=== PATIENT | male | born 1975 | race Caucasian/White ===

== ENCOUNTER 2017-10-11 22:51 | Inpatient (IN) | payer OTHER ==
[~2017-10-11] VITALS: Ht 175.3 cm; Wt 97.5 kg
[2017-10-11] MEDS ORDERED: LORAZEPAM 2 MG/1 ML VIAL IM PRN (23:00)
[2017-10-11] MEDS ORDERED: LOPERAMIDE HCL 2 MG CAPSULE PO PRN ×2 (23:00)
[2017-10-11] MEDS ORDERED: MAG HYDROX/AL HYDROX/SIMETH 30 ML LIQUID UDC PO PRN (23:00)
[2017-10-11] MEDS ORDERED: THIAMINE HCL 200 MG/2 ML VIAL IM ONE (23:00)
[2017-10-11] MEDS ORDERED: DICYCLOMINE HCL 20 MG TABLET PO PRN (23:00)
[2017-10-11] MEDS ORDERED: ACETAMINOPHEN 325 MG TABLET PO PRN (23:00)
[2017-10-11] MEDS ORDERED: LORAZEPAM 1 MG TABLET PO PRN ×2 (23:00)
[2017-10-11] MEDS ORDERED: MIRALAX 17 GM POWD.PACK PO PRN (23:00)
[2017-10-11] MEDS ORDERED: IBUPROFEN 400 MG TABLET PO PRN (23:00)
--- NOTE | 2017-10-11 23:25 | NUR ---
PRE - ADMISSION NOTE: Patient is a 42 year old male AOX4, presented to [facility] to detoxify from ETOH/Alcohol. CIWA16. Patient appears anxious, nervous, tremors to touch with flushed face. Patient is cooperative, speech is clear and audible. Patient reports NKA. Patient's vital signs are as follows: BP 109/70, HR 83, T: 98.1, RA SPO2 94%, pain level "0/10". Patient denies any pain at this time. Patient instructed on unit protocol of vitals Q4H and COWS/CIWA assessments. Patient verbalized understanding and agreement. Patient also instructed on policy regarding destruction of any controlled substances/prescriptions brought to facility, and handling of all medications. Patient verbalized understanding and agreement. Will complete admission assessment when patient is brought up to unit.
[2017-10-11 23:45] VITALS: BP 109/70
--- NOTE | 2017-10-11 23:45 | NUR ---
ADMISSION NOTE New patient is a 42 year old male admitted to [facility] on 10/11/2017 @2345 for medically supervised withdrawal from Alcohol. Patient reports NKA. Patient is on Full Code, Regular diet, is on Fall and Seizures precautions. Past Medical History: Anxiety, Depression, Hepatitis C, Substance Use disorder, Chronic tobacco use. Patient denies Past Surgical History. PCP - patient can't recalled the name. Pre-assessment completed in intake. Patient unable provided UDS test at this time. A&Ox4, speech is clear. Height: 69 in, Weight: 215 lbs by standing scale. VS upon admission: BP 109/70, HR 83, T: 98.1, RA SPO2 94%, pain level "0/10". Patient denies any pain at this time. CIWA 16. The patient presented with anxiety, agitation, nervousness, tremors, diaphoresis, restless legs, and fatigue. Patient denies SI/HI. Upon initial assessment respirations unlabored and even. Patient denies SOB and chest pain. Lungs Sounds are clear bilaterally. Bowel Sounds active in all x4 quadrants. Abdomen is soft and non-tender. 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 Skin is intact, warm and dry to touch. Patient reports the following Substances Use: "Alcohol PO "since 1986. Patient reports "using 20 bottles of beer (12 oz each) last 5 days. Last used 20 bottles of beer (12 oz each) on 10/11/2017". Patient reports she is "first time in detox treatment". Patient reports "Tobacco use since 1986 every day 1 pack = 20 cigarettes". Patient did not brought medications. Patient oriented to his room, Nurse Call Light, and [facility] Floor. Encouraged fluids as tolerated. Encouraged to attend activities groups. All needs met. Safety measures on place. Call light within reach, bed in lowest position and locked, padded rails up bilaterally rails up bilaterally. Will continue to monitor closely.
[2017-10-12] MEDS ORDERED: THIAMINE HCL 200 MG/2 ML VIAL ONE (00:09)
[2017-10-12] MEDS ORDERED: LORAZEPAM 1 MG TABLET ONE ×2 (00:10→06:01)
[2017-10-12 00:50] LABS: BASOPHILS % (AUTO) 0.7 % (0.0-2.0); EOSINOPHILS % (AUTO) 0.4 % (0.0-7.0); HEMATOCRIT 40.4 % (40-50); HEMOGLOBIN 13.8 G/DL (14.0-18.0); LYMPHOCYTES # (AUTO) 2.7 K/UL (0.8-4.8); LYMPHOCYTES % (AUTO) 40.2 % (20.5-51.5); MEAN CORPUSCULAR HEMOGLOBIN 29.8 UUG (27.0-31.0); MEAN CORPUSCULAR HGB CONC 34 g/dL (32.0-37.0); MEAN CORPUSCULAR VOLUME 87.1 FL (82.0-92.0); MONOCYTES # (AUTO) 0.4 K/UL (0.1-1.30); MONOCYTES % (AUTO) 6.5 % (0.0-11.0); NEUTROPHILS # (AUTO) 3.5 K/UL (1.8-8.9); NEUTROPHILS % (AUTO) 52.2 % (38.5-71.5); PLATELET COUNT (AUTO) 249 K/UL (150-450); RED BLOOD CELL COUNT(AUTO) 4.64 MIL/UL (4.7-6.1); WHITE BLOOD COUNT (AUTO) 6.6 K/UL (4.0-11.2)
[2017-10-12 00:51] LABS: BILIRUBIN,TOTAL 0.2 mg/dL (0.2-1.0); CREATININE 0.9 mg/dL (0.6-1.3); MAGNESIUM 1.9 mg/dL (1.8-2.4); POTASSIUM 3.7 mmol/L (3.5-5.1); TOTAL PROTEIN, SERUM 7.1 g/dL (6.4-8.2)
[2017-10-12] MEDS ORDERED: diphenhydrAMINE 50 MG CAPSULE ONE (00:56)
[2017-10-12 01:04] LABS: *AMPHETAMINE, URINE NEGATIVE (NEGATIVE); *BARBITURATE, URINE NEGATIVE (NEGATIVE); *CANNABINOID, URINE NEGATIVE (NEGATIVE); *COCCAINE, URINE NEGATIVE (NEGATIVE); *OPIATE, URINE NEGATIVE (NEGATIVE); *PHENCYCLIDINE SCREEN,URINE NEGATIVE (NEGATIVE)
[2017-10-12] MEDS: diphenhydrAMINE 50 MG CAPSULE PO PRN ×2 (01:28→20:24)
--- NOTE | 2017-10-12 01:28 | NUR ---
PRN ATIVAN 2 MG 2 TAB PO ADMINISTRATION Patient c/o increased anxiety and asked aid. CIWA 16. PRN Ativan 2 mg 2 tab PO administrated as ordered. Patient tolerated well. All needs met. Safety measures on place. Call light within reach, bed in lowest position and locked, padded rails up bilaterally rails up bilaterally. Will continue to monitor closely.
--- NOTE | 2017-10-12 01:28 | NUR ---
PRN BENADRYL 50 MG 1 CAP PO ADMINISTRATION Patient c/o insomnia. PRN Benadryl 50 mg 1 capsule PO for insomnia administrated with full glass of water as ordered. Patient tolerated well. All needs met. Safety measures on place. Call light within reach, bed in lowest position and locked, padded rails up bilaterally rails up bilaterally. Will continue to monitor closely.
--- NOTE | 2017-10-12 02:28 | NUR ---
RE-ASSESSMENT Patient is sleeping. Respirations even and unlabored. RR 15. PRN Ativan 2 mg 2 tab PO for anxiety/CIWA 16 administrated @0128 was effective. All needs met. Safety measures on place. Call light within reach, bed in lowest position and lock ed, padded rails up bilaterally rails up bilaterally. Will continue to monitor closely.
--- NOTE | 2017-10-12 02:28 | NUR ---
RE-ASSESSMENT Patient is sleeping. Respirations even and unlabored. RR 15. PRN Benadryl 50 mg 1 capsule PO for insomnia administrated @0128 was effective. All needs met. Safety measures on place. Call light within reach, bed in lowest position and lock ed, padded rails up bilaterally rails up bilaterally. Will continue to monitor closely.
[2017-10-12 04:00] VITALS: BP 106/70
--- NOTE | 2017-10-12 05:48 | NUR ---
PRN ATIVAN 1 MG 1 TAB PO ADMINISTRATION Patient c/o increased anxiety and asked aid. CIWA 7. PRN Ativan 1 mg 1 tab PO administrated as ordered. Patient tolerated well. All needs met. Safety measures on place. Call light within reach, bed in lowest position and locked, padded rails up bilaterally rails up bilaterally. Will continue to monitor closely.
--- NOTE | 2017-10-12 06:48 | NUR ---
RE-ASSESSMENT Patient is sleeping. Respirations even and unlabored. RR 16. PRN Ativan 1 mg 1 tab PO for anxiety/CIWA 7 administrated @0548 was effective. All needs met. Safety measures on place. Call light within reach, bed in lowest position and lock ed, padded rails up bilaterally rails up bilaterally. Will continue to monitor closely.
--- NOTE | 2017-10-12 07:14 | NUR ---
END OF SHIFT NOTE: Patient is a 42 year old male admitted to [facility] on 10/11/2017 for medically supervised withdrawal from Alcohol. Patient reports NKA. Patient is on Full Code, Regular diet, is on Fall and Seizures precautions. Past Medical History: Anxiety, Depression, Hepatitis C, Alcohol Use History, Chronic tobacco use. VS upon admission: BP 109/70, HR 83, T: 98.1, RA SPO2 94%, pain level "0/10". Patient denies any pain at this time. CIWA 16. The patient presented with anxiety, agitation, nervousness, tremors, diaphoresis, restless legs, and fatigue. Patient denies SI/HI. Last CIWA 7 @0400. Last VS @0400: T 98.1, BP 106/70, HR 78, RA SPO2 95%, RR 18, pain level "0/10". Patient denies SI/HI. Respirations unlabored and even. Patient denied SOB and chest pain. Abdomen is soft and non-tender. Skin is intact, warm and dry to touch. PRN Ativan PO x2 and PRN Benadryl PO were effective. Patient slept 4 hours, intake 355 ml, voided x1. Encouraged fluids intake as tolerated. All needs met. Safety measures on place. Call light within reach, bed in lowest position and locked, padded rails up bilaterally. Patient endorsed to day shift nurse. Report given.
--- NOTE | 2017-10-12 07:16 | NUR ---
START OF SHIFT Report Received, Patient is a 42 year old male admitted to [facility] on 10/11/2017 for medically supervised withdrawal from Alcohol. Patient is on Full Code, Regular diet, is on Fall and Seizures precautions denies any food or drug allergies. Pt reports Past Medical History: Anxiety, Depression, Hepatitis C, Alcohol Use History, Chronic tobacco use. Pt is currently not on a taper but has PRN medications in case of withdrawals. Encouraged pt to increase fluids intake as tolerated to facilitate detox process. Pt's last CIWA 7, pt received PRN Ativan 2mg and PRN Ativan 1mg per night time babysitter nurse PRN medications effective. All needs met. Safety measures on place. Call light within reach, bed in lowest position and locked, padded rails up bilaterally. will continue to monitor and provide support.
[2017-10-12 08:00] VITALS: BP 134/89
[2017-10-12] MEDS ORDERED: TUBERCULIN,PURIF.PROT.DERIV. 5 TU/0.1 ML TEST ID ONE (09:00)
[2017-10-12] MEDS: FOLIC ACID 1 MG TABLET PO SCH (09:12)
[2017-10-12] MEDS: MULTIVITAMINS,THERAPEUTIC TABLET PO SCH (09:12)
[2017-10-12] MEDS: THIAMINE HCL 100 MG TABLET PO SCH (09:12)
--- NOTE | 2017-10-12 09:12 | NUR ---
PRN MEDICATION Pt c/o Anxiety presented with agitation and restlessness requested something for relief, non-pharmacological techniques interventions provided x3 and were not effective. PRN Ativan 1mg administered PO, educated pt about s/e of medication and when to contact nurse. All needs met, all safety measures in place, will continue to monitor.
--- NOTE | 2017-10-12 10:12 | NUR ---
PRN Reassessment PRN ativan 1mg effective pts CIWA dropped from 6 to 5, pt verbalized relief. all needs met, will continue to monitor.
[2017-10-12] MEDS: LORAZEPAM 1 MG TABLET PO SCH ×3 (11:43→20:24)
[2017-10-12 12:00] VITALS: BP 117/72
[2017-10-12 16:00] VITALS: BP 120/76
--- NOTE | 2017-10-12 19:27 | NUR ---
End Of Shift Patient is a 42 year old male admitted to [facility] on 10/11/2017 for medically supervised withdrawal from Alcohol. Patient is on Full Code, Regular diet, is on Fall and Seizures precautions denies any food or drug allergies. VS monitored closely q 4 hours. Withdrawal symptoms were closely monitored. Pt was placed on a Modified Ativan Taper. Initial CIWA 6. Patient encouraged adequate PO fluid intake as tolerated. Patient presented with tremors and anxiety during the day. Pt refused TB in the AM. Last CIWA5 5. Per patient, Ativan has been helping him with his withdrawal symptoms. Pt ate all of his meals. Pt received PRN Ativan 1mg for CIWA of 6 in the AM medication was effective. Patient encouraged to attend group therapies/sessions to learn new coping skills to recent relapse, patient denies SI/HI. Participated in group and therapy sessions. All needs met and attended pt endorsed to shift engineer nurse.
[2017-10-12 20:00] VITALS: BP 130/82
--- NOTE | 2017-10-12 20:00 | NUR ---
Start of Shift Patient is a 42-year old, male, admitted for Alcohol dependence. Patient is Full Code, on Regular diet and with NKA . Pt reports history of Anxiety, Depression and Hepatitis C. Pt was placed on an Ativan taper, ending 10/14 in the evening. No adverse reactions noted at this time. Patient is AAOx4, and with mild anxiety noted. Pt is ambulatory with steady gait and with intact skin. No SOB noted. Fall, universal, seizure and safety prec in place. Call light within reach. Latest CIWA-4. Will continue to monitor.
--- NOTE | 2017-10-12 20:25 | NUR ---
RN note Benadryl Pt c/o inability to sleep. Administered Benadryl 50 mg PO PRN as ordered. Will reassess.
--- NOTE | 2017-10-12 21:33 | NUR ---
RN note reassess Pt lying on bed, eyes closed with no SOB nor facial grimacing noted.
[2017-10-12] MEDS: IV NS 1000 ML 1,000 ML IV PRN (21:50)
[2017-10-13] VITALS: BP 125/83
[2017-10-13] MEDS: CLONIDINE HCL 0.1 MG TABLET PO PRN ×2 (03:55→10:25)
--- NOTE | 2017-10-13 03:55 | NUR ---
RN note Clonidine PRN Pt c/o feeling anxious, increasingly agitated and with tremors noted. Administered Clonidine 0.1 mg PO PRN as ordered. Will reassess.
[2017-10-13 04:00] VITALS: BP 143/86
--- NOTE | 2017-10-13 04:58 | NUR ---
RN note reassess Pt asleep on bed, no facial grimacing nor SOB noted.
[2017-10-13] MEDS: IV NS 1000 ML 1,000 ML IV PRN (05:17)
[2017-10-13 07:06] LABS: HEPATITIS B SURFACE AG Negative (Negative)
--- NOTE | 2017-10-13 07:19 | NUR ---
End of Shift Patient is a 42-year old, male, admitted for Alcohol dependence. Patient is Full Code, on Regular diet and with NKA . Pt reports history of Anxiety, Depression and Hepatitis C. Pt was placed on an Ativan taper, ending 10/14 in the evening. No adverse reactions noted at this time. Patient is AAOx4, and with mild anxiety noted. Pt is ambulatory with steady gait and with intact skin. No SOB noted. Fall, universal, seizure and safety prec in place. Call light within reach. Latest CIWA-5, slept for 3 hours. Endorsed to AM shift nurse for continuity of care.
--- NOTE | 2017-10-13 07:30 | NUR ---
START OF SHIFT Pt 42 y/o male admitted for etoh dependence. Pt received in room on bed awake watching television. Pt alert and oriented to name, place, and time. Perrla. Skin warm and dry to touch. Respirations even and unlabored. Bilateral hand tremors noted slightly. Peripheral IV 22g on left hand in place, intact, and patent with no redness is not hot touch, and is infusing NS @125mL/hr and is tolerating well. It was reported that pt slept for 3 hours last night. Bed on lowest position with side rails x2 up for safety. Call light within reach. No distress noted at this time.
[2017-10-13] MEDS: THIAMINE HCL 100 MG TABLET PO SCH (08:26)
[2017-10-13] MEDS: LORAZEPAM 1 MG TABLET PO SCH ×3 (08:26→20:15)
[2017-10-13] MEDS: MULTIVITAMINS,THERAPEUTIC TABLET PO SCH (08:26)
[2017-10-13] MEDS: FOLIC ACID 1 MG TABLET PO SCH (08:26)
[2017-10-13 08:34] VITALS: BP 134/84
--- NOTE | 2017-10-13 10:26 | NUR ---
PRN Pt with yh=266/92. Catapres po prn per MD order given and tolerated well.
--- NOTE | 2017-10-13 11:26 | NUR ---
PRN EVAL Pt with qj=729/76
[2017-10-13 12:45] VITALS: BP 141/92
--- NOTE | 2017-10-13 13:12 | NUR ---
Therapist prompted client to attend groups today and not isolate in his room.
[2017-10-13 16:00] VITALS: BP 131/84
[2017-10-13] MEDS: HYDROXYZINE PAMOATE 25 MG CAPSULE PO PRN ×2 (16:39→23:44)
--- NOTE | 2017-10-13 16:40 | NUR ---
PRN Pt states feels anxious. Vistaril po prn per MD order given and tolerated well.
--- NOTE | 2017-10-13 17:40 | NUR ---
DESI RAMIREZ Pt observed in room on bed watching television.
--- NOTE | 2017-10-13 18:34 | NUR ---
END OF SHIFT Pt 42 y/o male admitted for etoh dependence. Pt alert and oriented to name, place, and time. Perrla. Skin warm and dry to touch. Respirations even and unlabored. Bilateral hand tremors noted slightly. Peripheral IV was dcd today and pt tolerated well. Pt observed mostly in room this morning and in recreation room throughout the afternoon. Pt attended group activity. Pt was seen by MD today. Pt medication compliant and tolerated well. No ASE noted. Bed on lowest position with side rails x2 up for safety. Call light within reach. No distress noted at this time.
--- NOTE | 2017-10-13 19:10 | NUR ---
Start of Shift Patient Received. Patient is in activities room participating in group activities. Patient is a 42 year old male admitted on 10/11/17 for ETOH Dependence under the care of Dr. Pritchett. Patient is currently receiving a modified Ativan taper. Patient verbalizes no known allergies, wishes to be full code, following a regular diet, placed on fall and seizure precautions, with skin noted intact. Patients past medical history noted as anxiety, depression, and Hep C (+). Per endorsement, patient was given PRN Vistaril with medication noted to be effective. All needs attended to promptly. Will continue plan of care as ordered.
[2017-10-13 20:11] VITALS: BP 145/90
[2017-10-13] MEDS: TRAZODONE 100 MG TABLET PO SCH (20:15)
--- NOTE | 2017-10-13 23:45 | NUR ---
PRN Medication Administration Patient is verbalizing increased anxiety. PRN Vistaril administered as per order. Will continue to monitor.
[2017-10-14 00:30] VITALS: BP 124/84
--- NOTE | 2017-10-14 00:30 | NUR ---
PRN Medication Reassessment Patient noted in bed sleeping. Breathing even and non labored. No signs of pain or discomfort noted. Patient was given PRN Vistaril for increased anxiety. Medication noted to be effective. Will continue to monitor.
[2017-10-14 04:00] VITALS: BP 125/83
--- NOTE | 2017-10-14 07:06 | NUR ---
End of Shift Patient is in bed, awake, alert and verbally responsive. Breathing even and non labored. Patient is a 42 year old male admitte don 10/11/17 for ETOH Dependence under the care of Dr. Pritchett. Patient is currently receiving a modified Ativan taper. No known allergies, Full Code, Regular Diet, placed on fall and seizure precautions, with skin noted intact. Patients past medical history noted as anxiety, depression, and Hep C (+). Patient received PRN Vistaril for increased anxiety with medication noted to be effective. Last noted CIWA 5. All needs attended to promptly. Will continue plan of care as ordered.
--- NOTE | 2017-10-14 07:30 | NUR ---
START OF SHIFT Pt 42 y/o male admitted for etoh dependence. Pt received in room on bed awake watching television. Pt alert and oriented to name, place, and time. Perrla. Skin warm and dry to touch. Respirations even and unlabored. Bilateral hand tremors noted slightly. Pt states has some anxiety this morning. It was reported that pt slept for 7 hours last night. Bed on lowest position with side rails x2 up for safety. Call light within reach. No distress noted at this time.
[2017-10-14 08:00] VITALS: BP 139/98
[2017-10-14] MEDS: HYDROXYZINE PAMOATE 25 MG CAPSULE PO PRN ×2 (08:17→15:46)
[2017-10-14] MEDS: MULTIVITAMINS,THERAPEUTIC TABLET PO SCH (08:17)
[2017-10-14] MEDS: CLONIDINE HCL 0.1 MG TABLET PO PRN ×2 (08:17→17:16)
[2017-10-14] MEDS: THIAMINE HCL 100 MG TABLET PO SCH (08:18)
[2017-10-14] MEDS: FOLIC ACID 1 MG TABLET PO SCH (08:18)
--- NOTE | 2017-10-14 08:22 | NUR ---
PRN Pt with rh=613/84. Catapres po prn per MD order given and tolerated well.
--- NOTE | 2017-10-14 08:24 | NUR ---
PRN Pt states feels anxious. Vistaril po prn per MD order given and tolerated well.
[2017-10-14] MEDS ORDERED: LORAZEPAM 1 MG TABLET PO SCH (09:00)
--- NOTE | 2017-10-14 09:22 | NUR ---
PRN EVAL Pt with df=545/74
--- NOTE | 2017-10-14 09:24 | NUR ---
PRN JAMES Pt observed on bed in room watching television.
[2017-10-14 12:00] VITALS: BP 139/98
--- NOTE | 2017-10-14 12:41 | NUR ---
Therapist prompted client to come into group today. Client agreed to come to group,
--- NOTE | 2017-10-14 14:29 | NUR ---
PRN Pt with complaints of headache 03/30. Motrin po prn per MD order given and tolerated well.
--- NOTE | 2017-10-14 15:29 | NUR ---
PRN EVAL Pt states does not have a headache at this time.
--- NOTE | 2017-10-14 15:46 | NUR ---
PRN Pt states feels anxious. vistaril po prn per MD order given and tolerated well.
[2017-10-14 16:00] VITALS: BP 148/93
--- NOTE | 2017-10-14 16:46 | NUR ---
PRN JAMES Pt observed sitting in group activity.
--- NOTE | 2017-10-14 17:19 | NUR ---
PRN Pt with bi=108/93. Catapres po prn per MD order given and tolerated well.
--- NOTE | 2017-10-14 18:11 | NUR ---
END OF SHIFT Pt 42 y/o male admitted for etoh dependence. Pt alert and oriented to name, place, and time. Perrla. Skin warm and dry to touch. Respirations even and unlabored. Bilateral hand tremors noted slightly. Pt observed mostly in room this morning and in recreation room throughout the afternoon. Pt attended group activity. Pt is scheduled to be discharged tomorrow. Pt was seen by MD today. Pt medication compliant and tolerated well. No ASE noted. Bed on lowest position with side rails x2 up for safety. Call light within reach. No distress noted at this time.
--- NOTE | 2017-10-14 19:10 | NUR ---
Start of Shift Patient Received. Patient is in activities room participating in group activities. Patient is a 42 year old male admitted on 10/11/17 for ETOH Dependence under the care of Dr. Pritchett. Patient has completed a 5 day Ativan taper with orders to discharge tomorrow 10/15/17. No known allergies, Full Code, Regular Diet, placed on fall and seizure precautions, with skin noted intact. Patients past medical history noted as anxiety, depression, and Hep C (+). Per endorsement, patient received PRN Vistaril x2 and Clonidine x2. Last noted CIWA 4. All needs attended to promptly. Will continue plan of care as ordered.
[2017-10-14] MEDS ORDERED: HYDR-3895 PO (19:30)
[2017-10-14] MEDS ORDERED: TRAZ-147 PO (19:30)
[2017-10-14] MEDS ORDERED: CLON0.1T14 PO (19:30)
[2017-10-14 20:30] VITALS: BP_SYST 138; BP_SYST 141; BP_DIAS 89
[2017-10-14] MEDS: TRAZODONE 100 MG TABLET PO SCH (21:00)
--- NOTE | 2017-10-14 22:00 | NUR ---
Routine Medication Refused Patient verbalized "I want to try and sleep without taking any sleep medications tonight." Risks and Benefits explained. patient still refused. Will continue to monitor.
[2017-10-15] VITALS: BP 133/76
[2017-10-15] MEDS: HYDROXYZINE PAMOATE 25 MG CAPSULE PO PRN ×2 (01:51→08:52)
--- NOTE | 2017-10-15 01:55 | NUR ---
PRN Medication Administration Patient is noted awake and verbalizing increased anxiety. PRN Vistaril administered as per order. Will continue to monitor.
--- NOTE | 2017-10-15 03:00 | NUR ---
PRN Medication Reassessment Patient is noted in bed sleeping but easily aroused to verbal stimuli. Breathing even and non labored. Patient is able to verbalize "my anxiety is much better but Im struggling to fall asleep. But Ill be OK. I think Im just thinking about tomorrow and getting home." PRN Vistaril noted to be effective in minimizing anxiety. Will continue to monitor.
[2017-10-15 04:27] VITALS: BP 129/76
[2017-10-15 05:01] VITALS: BP_SYST 135; BP_SYST 140; BP_DIAS 98
[2017-10-15] MEDS: CLONIDINE HCL 0.1 MG TABLET PO PRN (05:04)
--- NOTE | 2017-10-15 05:08 | NUR ---
PRN Medication Administration Patients blood pressure noted to be 137/98 with a pulse rate of 75 PRN Clonidine administered as per order. Will continue to monitor.
[2017-10-15 06:05] VITALS: BP 127/81
--- NOTE | 2017-10-15 06:05 | NUR ---
PRN Medication Reassessment Patient was given PRN Clonidine for blood pressure of 137/98 and pulse of 75. Blood pressure noted to be 127/81 and pulse of 77. Will continue to monitor
--- NOTE | 2017-10-15 07:14 | NUR ---
End of Shift Patient is in his room, awake, alert and verbally responsive. Breathing even and non labored. Patient is a 42 year old male admitted on 10/11/17 for ETOH Dependence under the care of Dr. Pritchett. Patient has completed a 5 day Ativan taper with orders to discharge today 10/15/17. No known allergies, Full Code, Regular Diet, placed on fall and seizure precautions, with skin noted intact. Patients past medical history noted as anxiety, depression, and Hep C (+). Patient refused 2100 dose of sleep medication and received PRN Vistaril and PRN Clonidine with both medications noted to be effective. Last noted CIWA 6. All needs attended to promptly. Will endorse to continue plan of care as ordered.
--- NOTE | 2017-10-15 07:30 | NUR ---
start of shift note: received pt from shift boss nurse, pt is in stable condition no pain or discomfort. pt is admitted to [facility] for Etoh withdrawal/dependence. pt is anxious with a ciwa of 6. pt is set to discharge today. will assist pt in discharging and continue to monitor pt for any changes
[2017-10-15] MEDS: THIAMINE HCL 100 MG TABLET PO SCH (08:52)
[2017-10-15] MEDS: MULTIVITAMINS,THERAPEUTIC TABLET PO SCH (08:52)
[2017-10-15] MEDS: FOLIC ACID 1 MG TABLET PO SCH (08:52)
--- NOTE | 2017-10-15 09:30 | NUR ---
discharge note: pt left the unit in stable condition no s/s of pain or discomfort or any withdrawal symptoms. pt teaching was administered and pt verbalized understanding. Pt's V/s WNL. Pt's personal belongings were returned and pt will be transferred to home via on transportation
== END 2017-10-15 09:25 | disposition home or self-care (01) | DRG 895 ==
LOC: SRC 22:51
PROVIDERS: ADMIT Internal Medicine; ATTEND Internal Medicine
PROC: HZ2ZZZZ Detoxification Services for Substance Abuse Treatment (ICD-10-PCS; principal; 2017-10-11)
PROC: HZ31ZZZ Individual Counseling for Substance Abuse Treatment, Behavioral (ICD-10-PCS; 2017-10-13)
PROC: HZ41ZZZ Group Counseling for Substance Abuse Treatment, Behavioral (ICD-10-PCS; 2017-10-13)
DX: F10.230 Alcohol dependence with withdrawal, uncomplicated (principal); I15.9 Secondary hypertension, unspecified; B15.9 Hepatitis A without hepatic coma; D64.9 Anemia, unspecified; F12.90 Cannabis use, unspecified, uncomplicated; Y90.8 Blood alcohol level of 240 mg/100 ml or more; F17.210 Nicotine dependence, cigarettes, uncomplicated; F41.9 Anxiety disorder, unspecified; Z81.1 Family history of alcohol abuse and dependence; Z82.49 Family history of ischemic heart disease and other diseases of the circulatory system; R73.9 Hyperglycemia, unspecified
CPT/HCPCS: 36415; 70030-TC; 80307; 83735; 85025; 86592; 86705; 86803; 87340; 87806; A4663; G0480; J3411; J7030; Q0163